=== PATIENT | male | born 1970 | race Caucasian/White ===

== ENCOUNTER 2020-09-21 10:31 | Outpatient (NON) | payer BC, SELFPAY ==
[2020-09-23 16:41] LABS: SARS-CoV-2 RNA PCR Positive
== END 2020-09-21 10:32 ==
PROVIDERS: PCP Family Medicine; Visit Provider Family Medicine
DX: U07.1 COVID-19 (principal)
CPT/HCPCS: 87635; C9803; U0003

== ENCOUNTER 2020-09-29 11:48 | Emergency (ER) | payer BC, SELFPAY ==
[2020-09-29] VITALS (20 sets, daily range): BP systolic 119–143; BP diastolic 85–99; PULSE 91–112; RESP 13–25; TEMP 36.8–37.7; O2SAT 92–98
--- NOTE | ~2020-09-29 | CT_ITS ---
EXAMINATION: CTA chest PE protocol DATE: 09/29/2020 15:12 INDICATION: Shortness of breath. TECHNIQUE: Computed tomography angiography (CTA) of the chest was performed with 100 mL Omnipaque-350 intravenous contrast timed to evaluate the pulmonary arteries. Coronal maximum intensity projection 3D-reconstructions were created by the technologist. Automated exposure control and iterative reconst ruction technique were employed. The dose-length product was 543.74 mGy-cm. COMPARISON: Chest single view 09/29/2020 FINDINGS: There are peripheral groundglass opacities in right lower lobe. There is mild dependent ate lectasis in left lower lobe. There is mild scarring at the lung apices. A calcified left lung nodule and calcified left hilar and mediastinal lymph nodes are consistent with old granulomatous disease. N o pleural effusion. The heart size is normal. No pericardial effusion. There is a pulmonary embolus i n basilar right lower lobe. There is mild right hilar lymphadenopathy. There is mild thoracic spondyl osis. IMPRESSION: 1. Pulmonary embolus in basilar right lower lobe. I called this result to Dr. Ortega. 2. Peripheral groundglass opacities in right lower lobe, likely predominantly atypical pneumonia. 3. Mild right hilar lymphadenopathy, likely reactive. Reviewed, dictated and finalized at location A. 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 Pulmonary embolus in basilar right lower lobe. I called this result to Dr. David antonio. 2. Peripheral groundglass opacities in right lower lobe, likely predominantly a typical pneumonia. 3. Mild right hilar lymphadenopathy, likely reactive.
--- NOTE | ~2020-09-29 | XR_ITS ---
XR chest 1V portable DATE: 09/29/2020 12:31 INDICATION: Shortness of breath, cough. Covid-positive. TECHNIQUE: Portable AP chest on 09/29/2020 at 1223 hours COMPARISON: None FINDINGS: Normal heart size. No hilar or mediastinal enlargement. No pulmonary infiltrate or consolid ation, pleural effusion or pulmonary vascular congestion or pneumothorax. There is mild levoscoliosis of the thoracic spine. IMPRESSION: No active cardiopulmonary disease Reviewed, dictated and finalized at location A. [employer]
--- NOTE | 2020-09-29 12:04 | ECG_ITS ---
Measurements Intervals [place] Rate: 106 P: 17 MI: 140 QRS: 138 QRSD: 115 T: 40 QT: 325 QTc: 433 Interpretive Statements SINUS TACHYCARDIA RIGHT AXIS DEVIATION INCOMPLETE RIGHT BUNDLE BRANCH BLOCK BORDERLINE ST-T WAVE ABNORMALITY- INFERIOR LEADS ABNORMAL ECG Electronically Signed On 09-29-2020 15:45:03 [employer]LEGE COACH by Michael Whitney D.O.
[2020-09-29 12:25] LABS: Basophils Percent Auto 0.2 % (0.2-1.2); Hematocrit 45.2 % (42.0-52.0); Hemoglobin 16.2 g/dL (14.0-18.0); Immature Granulocyte Absolute 0.05 K/mm3 (0.00-0.031); Immature Granulocyte Percent A 1.1 % (0-0.5); Lymphocytes Absolute Auto 0.89 K/mm3 (0.9-3.2); Lymphocytes Percent Auto 19.9 % (18.3-44.2); Mean Corpuscular HGB Conc 35.8 g/dl (32-36); Mean Corpuscular Hemoglobin 31.9 pg (26-34); Mean Platelet Volume 9.8 fl (7.4-10.4); Monocytes Absolute Auto 0.5 K/mm3 (0.1-0.6); Monocytes Percent Auto 10.1 % (2.6-8.5); Neutrophils Absolute Auto 3.1 K/mm3 (1.3-6.7); Neutrophils Percent Auto 68.7 % (45.5-73.1); Platelet Count Result 184 k/mm3 (150-375); Red Blood Count 5.08 M/mm3 (4.6-6.20); Red Cell Distribution Width 12.6 % (11.5-14.5); White Blood Count 4.5 K/mm3 (4.5-10.0)
[2020-09-29 12:52] LABS: D Dimer 1.11 ug/mL (<0.48)
[2020-09-29 12:58] LABS: Anion Gap 10 mmol/L (8-16); Blood Urea Nitrogen 15 mg/dL (9-20); Calcium 9.2 mg/dL (8.4-10.2); Carbon Dioxide 28 mmol/L (22-30); Chloride 96 mmol/L (98-107); Estimated CRCL calculation 95 ml/min; Estimated Glomerular Filt Rate > 60; Glucose 102 mg/dL (75-110); Potassium 3.8 mmol/L (3.4-5.0); Sodium 134 mmol/L (137-145)
[2020-09-29 12:59] LABS: Lactic Acid Reflex 1.3 mmol/L (0.7-2.1)
[2020-09-29 13:05] LABS: Alanine Aminotransferase 40 U/L (4-50); Albumin Level 4.4 g/dL (3.5-5.1); Alkaline Phosphatase 82 U/L (38-126); Aspartate Amino Transferase 46 U/L (17-59); Bilirubin,Total 0.7 mg/dL (0.2-1.3)
[2020-09-29 13:32] LABS: Alveolar/Arterial O2 Gradient 52.1 mmHg; Base Excess ABG 0.5 mEq/l (+/-2.0); Fractional Inspired Oxygen 21 %; HCO3 ABG 21.4 mEq/l (22.0-26.0); Oxygen Content ABG 21.6 %vol (16.0-22.0); Oxygen Saturation ABG 95.2 % (95.0-100.0); Oxyhemoglobin 93.2 % THb (90.0-100.0); PCO2 ABG 26.4 mmHg (35.0-45.0); PO2 FiO2 Ratio Arterial Blood 3.14 %; Total Hemoglobin 16.5 g/dL (12.0-18.0); pH ABG 7.527 (7.350-7.450)
[2020-09-29 13:33] LABS: Device ROOM AIR; Modified Allen's Test Pass
--- NOTE | 2020-09-29 13:55 | ED.GENADULT ---
HPI - General Adult General Chief complaint: Shortness of Breath/Dyspnea Stated complaint: COVID +, increased short of breath Time Seen by Provider: 09/29/20 12:27 Source: patient Limitations: no limitations History of Present Illness HPI narrative: 50 years old white male presents with chest pain. Patient developed Covid symptoms 9 days ago. Positive Covid test 3 days later. Patient developed chest pain 2 to 3 days prior to arrival to the emergency room. Patient also complaining of general weakness, body aches, not feeling well, poor appetite and poor p.o. fluid intake. Patient did not take any fever medication prior to arrival today. Temperature on arrival is 99.9. History of tension. Patient does not smoke, or uses drugs, drinks occasionally. Related Data Allergies Allergy/AdvReac Type Severity Reaction Status Date / Time No Known Allergies Allergy Unknown Unverified 09/29/20 11:55 Review of Systems Review of Systems: Narrative: CONSTITUTIONAL: Complaining of feeling miserable, muscle aches mainly of the chest EYES: Denies visual changes, redness, or discharge. ENT: Denies rhinorrhea, congestion, sore throat, or otalgia. CARDIOVASCULAR: Denies chest pain, palpitations, or edema. RESPIRATORY: Intermittent dry cough GASTROINTESTINAL: Denies abdominal pain, nausea, vomiting, or diarrhea. GENITOURINARY: Denies dysuria or hematuria. SKIN: Denies rash or itching. MUSCULOSKELETAL: General body aches NEUROLOGIC: General weakness PMFSH Past Medical History Medical History Obesity (BMI 30.0-34.9) Family History Family History Father Hypertension Family history of Parkinson's disease Mother Cerebrovascular accident Other Family history of arthritis Social History Social History Smoking status: Never smoker Second hand tobacco smoke exposure: Yes Alcohol intake: current Gender identity (if verbalized by the patient): Male Exam Narrative: Exam Narrative: General appearance: Well-developed, well-nourished, does not look in pain or distress Skin: Normal color Head: Normocephalic Eyes: Clear conjunctiva ENT: Oropharynx normal Chest and respiratory: Airway patent, no respiratory distress, no accessory muscle use Heart: Regular rate/rhythm Abdomen: Soft, nontender, no organomegaly, quiet bowel sounds Neurologic: Alert and oriented ?3, Course Course Emergency Course: Stable Consultations Consultation #1: DR HODGES Date: 09/29/20 Time: 16:18 Consultation #2: DR SMITH Date: 09/29/20 Time: 16:18 Vital Signs Vital signs: Vital Signs Temperature 37.7 C H 09/29/20 11:53 Pulse Rate 112 H 09/29/20 11:53 Respiratory Rate 24 H 09/29/20 11:53 Blood Pressure 119/93 H 09/29/20 11:53 Pulse Oximetry 97 09/29/20 11:53 Temperature 37.7 C H 09/29/20 11:53 Pulse Rate 98 09/29/20 13:02 Respiratory Rate 17 09/29/20 13:34 Blood Pressure 143/99 H 09/29/20 13:02 Pulse Oximetry 97 09/29/20 13:34 Medical Decision Making MDM Narrative Medical decision making narrative: Covid infection disease is my concern Labs, chest x-ray, blood gas on room air, IV normal saline, IV Toradol Ordered, oral Tylenol ordered. Further plan to follow Differential Diagnosis Differential Diagnosis: Pneumonia, pulmonary embolism, electrolyte imbalance. Vital Signs Vital Signs: Vital Signs Temperature 37.7 C H 09/29/20 11:53 Pulse Rate 112 H 09/29/20 11:53 Respiratory Rate 24 H 09/29/20 11:53 Blood Pressure 119/93 H 09/29/20 11:53 Pulse Oximetry 97 09/29/20
[2020-09-29] MEDS: ACETAMINOPHEN 325 MG TABLET 650 MG PO (14:02)
[2020-09-29] MEDS: KETOROLAC 30 MG/ML VIAL (*BKC) IV PUSH (14:02)
[2020-09-29] MEDS: SODIUM CHLORIDE 0.9% IV 1,000 ML 999 ML IV CONT (14:03)
[2020-09-29] MEDS: APIXABAN 5 MG TABLET 10 MG PO (16:20)
== END 2020-09-29 16:40 | disposition home or self-care (01) ==
PROVIDERS: Emergency Medicine; Emergency Provider Emergency Medicine; PCP Family Medicine
DX: U07.1 COVID-19 (principal); E87.3 Alkalosis; I26.99 Other pulmonary embolism without acute cor pulmonale; E66.9 Obesity, unspecified; Z68.31 Body mass index [BMI] 31.0-31.9, adult; R00.0 Tachycardia, unspecified; I45.10 Unspecified right bundle-branch block; R94.31 Abnormal electrocardiogram [ECG] [EKG]
CPT/HCPCS: 36415; 36600; 71045; 71275; 80048; 80076; 82805; 83605; 85025; 85380; 93005; 96361; 96374; 99284; A9270; J1885; J7030; Q9967

== ENCOUNTER 2020-10-18 10:38 | Emergency (ER) | payer BC, SELFPAY ==
--- NOTE | ~2020-10-18 | CT_ITS ---
EXAMINATION: CT abdomen pelvis w con DATE: 10/18/2020 11:40 INDICATION: Abdominal pain. TECHNIQUE: Computed tomography (CT) of the abdomen and pelvis was performed with 100 mL Omnipaque 350 intravenous contrast. Automated exposure control and iterative reconstruction technique were employe d. The dose-length product was 881.77 mGy-cm. COMPARISON: Chest CT 09/29/2020 FINDINGS: The visualized portions of the lung bases demonstrate groundglass and airspace opacities in right lower lobe. There is mild atelectasis in left lower lobe. No pleural effusion. The heart size is normal. No pericardial effusion. The liver, gallbladder, spleen, pancreas, adrenal glands, and rig ht kidney are normal. There is an infarct involving left kidney mid zone. Left renal artery and renal vein are normal. There is a small left inguinal hernia containing fat. There is diverticulosis of th e colon without evidence of diverticulitis. There are no dilated loops of bowel. The appendix is norm al. There is an umbilical hernia containing fat. There are no pathologically enlarged lymph nodes. Th ere is no free intraperitoneal fluid. There is mild lumbar spondylosis. IMPRESSION: 1. Infarct in left kidney mid zone. 2. Airspace and groundglass opacities in right lower lobe with improvement, consistent with pneumonia . 3. Umbilical hernia and left inguinal hernia containing fat. Reviewed, dictated and finalized at location A. [employer] IMPRESSION: 1. Infarct in left kidney mid zone. 2. Airspace and groundglass opacities in right lower lobe with improvement, con sistent with pneumonia. 3. Umbilical hernia and left inguinal hernia containing fat.
--- NOTE | ~2020-10-18 | XR_ITS ---
EXAMINATION: XR chest 1V portable DATE: 10/18/2020 12:43 INDICATION: Cough. COVID-19 pneumonia. TECHNIQUE: A single frontal view of the chest was obtained. COMPARISON: Chest single view 09/29/2020, CT abdomen and pelvis 10/18/2020 FINDINGS: There are mild airspace opacities in right lower lung zone. A calcified left lung nodule is consistent with old granulomatous disease. No pleural effusion or pneumothorax. The heart size is no rmal. IMPRESSION: 1. Mild airspace opacities in right lower lung zone, consistent with pneumonia. Reviewed, dictated and finalized at location A. ER COOK
[2020-10-18 10:46] VITALS: BP 148/91; PULSE 97; RESP 18; TEMP 35.7; O2SAT 98
[2020-10-18 11:10] LABS: Basophils Absolute Auto 0.1 K/mm3 (0.0-0.1); Basophils Percent Auto 0.5 % (0.2-1.2); Eosinophils Absolute Auto 0.1 K/mm3 (0-0.3); Eosinophils Percent Auto 0.5 % (0-4.4); Hematocrit 42.8 % (42.0-52.0); Hemoglobin 15.3 g/dL (14.0-18.0); Immature Granulocyte Absolute 0.04 K/mm3 (0.00-0.031); Immature Granulocyte Percent A 0.3 % (0-0.5); Mean Corpuscular HGB Conc 35.7 g/dl (32-36); Mean Corpuscular Hemoglobin 32.6 pg (26-34); Mean Corpuscular Volume 91.3 fl (80-100); Mean Platelet Volume 9.1 fl (7.4-10.4); Monocytes Absolute Auto 1.1 K/mm3 (0.1-0.6); Monocytes Percent Auto 9.3 % (2.6-8.5); Neutrophils Absolute Auto 8.1 K/mm3 (1.3-6.7); Neutrophils Percent Auto 66.4 % (45.5-73.1); Platelet Count Result 298 k/mm3 (150-375); Red Blood Count 4.69 M/mm3 (4.6-6.20); White Blood Count 12.2 K/mm3 (4.5-10.0)
[2020-10-18 11:16] LABS: Add Urine Microscopic? NO; Appearance Urine Clear (Clear); Bilirubin Urine Negative (Negative); Blood Urine Negative (Negative); Color Urine Colorless (Yellow); Glucose Urine UA Negative (Negative); Ketones Urine Negative (Negative); Leukocyte Esterase Ur Negative LEU/UL (Negative); Nitrate Urine Negative (Negative); Protein Urine Negative (Negative); RBC Urine 0-2 /hpf (0-2); Specific Grav Ur 1.006 (1.001-1.035); Urobilinogen Urine Negative mg/dL (<2.0); WBC Urine 0-3 /hpf
[2020-10-18 11:19] LABS: INR 1.1; Partial Thromboplastin Time 33.3 SECONDS (22.3-36.8); Prothrombin Time 14.5 Seconds (11.1-14.7)
[2020-10-18 11:21] LABS: Lactic Acid Reflex 1.3 mmol/L (0.7-2.1)
[2020-10-18 11:22] LABS: Alanine Aminotransferase 34 U/L (4-50); Albumin Level 4.6 g/dL (3.5-5.1); Alkaline Phosphatase 85 U/L (38-126); Anion Gap 8 mmol/L (8-16); Aspartate Amino Transferase 30 U/L (17-59); Blood Urea Nitrogen 12 mg/dL (9-20); Calcium 9.6 mg/dL (8.4-10.2); Carbon Dioxide 28 mmol/L (22-30); Chloride 99 mmol/L (98-107); Estimated CRCL calculation 94 ml/min; Estimated Glomerular Filt Rate > 60; Glucose 103 mg/dL (75-110); Lipase 194 U/L (23-300); Potassium 3.7 mmol/L (3.4-5.0); Sodium 135 mmol/L (137-145)
[2020-10-18] MEDS: SODIUM CHLORIDE 0.9% IV 1,000 ML 999 ML IV CONT (11:48)
[2020-10-18] MEDS: FAMOTIDINE 20 MG/2 ML VIAL IV PUSH (11:49)
--- NOTE | 2020-10-18 13:39 | ED.ABDPAIN ---
HPI - Abdominal Pain General Chief Complaint: Abdominal Pain <Roger Ojeda PA-C - Last Filed: 10/18/20 13:48> Stated Complaint: left flank pain <Roger Ojeda PA-C - Last Filed: 10/18/20 13:48> Time Seen by Provider: 10/18/20 10:44 <Roger Ojeda PA-C - Last Filed: 10/18/20 13:48> Source: patient and old records reviewed <Roger Ojeda PA-C - Last Filed: 10/18/20 13:48> Mode of arrival: ambulatory <Roger Ojeda PA-C - Last Filed: 10/18/20 13:48> Limitations: no limitations <Roger Ojeda PA-C - Last Filed: 10/18/20 13:48> History of Present Illness HPI narrative: Patient is a 50-year-old male who presents to emergency department for evaluation of left flank pain abdominal discomfort that sometimes radiates across the lower abdomen that is been present for the last day patient notes when he wipes he has a small amount of blood but has history of hemorrhoids and possible fissure. Patient has had difficulty with bowel movements with constipation is taken fiber supplements and intermittent MiraLAX. Patient is also currently getting over COVID-19 his symptoms have largely resolved aside from continuing to have a cough but is denying chest pain or dyspnea. Patient on arrival does not appear distressed. Patient has been without emesis or melena. On arrival patient in the room in no distress is noted <Roger Ojeda PA-C - Last Filed: 10/18/20 13:48> Related Data Allergies/Adverse Reactions: Allergies Allergy/AdvReac Type Severity Reaction Status Date / Time No Known Allergies Allergy Unknown Unverified 09/29/20 11:55 <Roger Ojeda PA-C - Last Filed: 10/18/20 13:48> Review of Systems Review of Systems: All systems reviewed & are unremarkable except as noted in HPI and below <Roger Ojeda PA-C - Last Filed: 10/18/20 13:48> PMFSH Past Medical History Medical History: Medical History Obesity (BMI 30.0-34.9) Pulmonary embolism <Roger Ojeda PA-C - Last Filed: 10/18/20 13:48> Family History Family History: Family History Father Hypertension Family history of Parkinson's disease Mother Cerebrovascular accident Other Family history of arthritis <Roger Ojeda PA-C - Last Filed: 10/18/20 13:48> Social History Social History: Social History Smoking status: Never smoker Second hand tobacco smoke exposure: Yes Alcohol intake: current Gender identity (if verbalized by the patient): Male <Roger Ojeda PA-C - Last Filed: 10/18/20 13:48> Exam Narrative: Exam Narrative: GENERAL: Well-appearing, well-nourished, and in no acute distress. HEAD: Normocephalic, atraumatic. EYES: PERRLA and EOMI. ENT: Nares clear, no rhinorrhea or epistaxis. Mucous membranes moist. CHEST: Clear to auscultation. No respiratory distress. No wheezes rales or rhonchi HEART: Regular rate and rhythm. No murmur heard. Normal peripheral pulses. ABDOMEN: Soft, left lower abdominal tenderness remainder of exam unremarkable no rebound or guarding, nondistended EXTREMITIES: Normal range of motion. No edema. SKIN: Warm, dry, no rash. NEURO: No focal deficits. Alert and oriented x3. Cranial nerves II through XII grossly intact PSYCH: Normal mood and affect. <Roger Ojeda PA-C - Last Filed: 10/18/20 13:48> Course Course Emergency Course: Patient in the room was evaluated to include chest x-ray scan of the abdomen patient with normal vital signs ABCs intact no high risk changes in the blood work or imaging. Patient with small amount of leukocytosis. Patient will follow with primary care. Patient will be set up with anorectal specialist as well as primary care follow-up patient agrees with the plan feels comfortable with the plan and has also been
[2020-10-18 14:00] VITALS: BP 132/88; PULSE 84; RESP 16; O2SAT 98
== END 2020-10-18 14:05 | disposition home or self-care (01) ==
PROVIDERS: Emergency Medicine Emergency Medical Services; Emergency Provider Emergency Medicine; PCP Family Medicine
DX: R10.32 Left lower quadrant pain (principal); U07.1 COVID-19; Z86.711 Personal history of pulmonary embolism; E66.9 Obesity, unspecified; Z68.30 Body mass index [BMI] 30.0-30.9, adult; K42.9 Umbilical hernia without obstruction or gangrene; R91.8 Other nonspecific abnormal finding of lung field
CPT/HCPCS: 36415; 71045; 74177; 80053; 81003; 83605; 83690; 85025; 85610; 85730; 96374; 96375; 99284; J0131; J7030; Q9967

== ENCOUNTER 2021-04-21 11:46 | Outpatient (CLI) | payer BC, SELFPAY ==
--- NOTE | ~2021-04-21 | XR_ITS ---
XR shoulder LT min 2V 04/21/2021 12:07 Indication: Left shoulder pain Procedure: 4 views left shoulder Comparison: No prior studies for comparison. Findings: No fracture, subluxation or dislocation. There are mild degenerative changes of the glenohu meral joint. No significant soft tissue abnormality. The visualized lung parenchyma is unremarkable. Impression: 1: Mild osteoarthritis of the left shoulder. Reviewed, dictated and finalized at location B. Impression: 1: Mild osteoarthritis of the left shoulder.
== END 2021-04-21 11:47 | disposition home or self-care (01) ==
LOC: ANHBWCIMG 11:54
PROVIDERS: PCP Family Medicine; Visit Provider Family Medicine
DX: M19.012 Primary osteoarthritis, left shoulder (principal)
CPT/HCPCS: 73030

== ENCOUNTER 2021-06-09 06:44 | Outpatient (CLI) | payer BC, SELFPAY ==
--- NOTE | ~2021-06-09 | MR_ITS ---
EXAMINATION: MR shoulder LT wo con DATE: 06/09/2021 07:59 INDICATION: Left shoulder pain. TECHNIQUE: Magnetic resonance imaging (MRI) of the left shoulder was performed without intravenous co ntrast. Sequences included axial PD-weighted FS FSE, coronal oblique PD-weighted FS FSE and T2-weight ed FS FSE, and sagittal oblique T2-weighted FS FSE and T1-weighted FSE. COMPARISON: Left shoulder radiograph 04/21/2021 FINDINGS: Coracoacromial arch: The acromion undersurface is curved in morphology with anterior hook (type III). Subacromial spurring is noted. There is mild acromioclavicular joint osteoarthritis. There is moderate subacromial/subdel toid bursitis. Rotator cuff: There is a bursal sided partial-thickness tear of supraspinatus tendon measuring 13 mm anterior to po sterior by 8 mm proximal to distal by 70% tendon thickness. There is moderate infraspinatus tendinopa thy. Teres minor tendon is normal. There is mild subscapularis tendinopathy. There is no asymmetric f atty atrophy of the rotator cuff muscle bellies. Biceps tendon and glenoid labrum: There is a complete tear of proximal biceps tendon. There is a tear of superior and posterior labrum from 9:00 to 12:00 (SLAP tear). Fluid: There is a small glenohumeral joint effusion. Bones/cartilage: There is posterior subluxation of humeral head with respect to glenoid. Glenoid cartilage is normal. Humeral head cartilage is normal. IMPRESSION: 1. Bursal-sided, partial-thickness tear of supraspinatus tendon. 2. SLAP tear. 3. Mild acromioclavicular joint osteoarthritis. 4. Complete tear of proximal biceps tendon. 5. Moderate subacromial/subdeltoid bursitis. 6. Small glenohumeral joint effusion. Reviewed, dictated and finalized at location A.
== END 2021-06-09 06:45 | disposition home or self-care (01) ==
PROVIDERS: PCP Family Medicine; Visit Provider Orthopaedic Surgery
DX: M25.412 Effusion, left shoulder (principal); M19.012 Primary osteoarthritis, left shoulder; M75.52 Bursitis of left shoulder; S43.432A Superior glenoid labrum lesion of left shoulder, initial encounter; X58.XXXA Exposure to other specified factors, initial encounter
CPT/HCPCS: 73221

== ENCOUNTER → 2021-07-18 01:44 | Outpatient (CLI) | payer BC, SELFPAY ==
[2021-07-18 19:39] LABS: SARS-CoV-2 RNA PCR Negative
== END ==
PROVIDERS: PCP Family Medicine; Visit Provider Family Medicine
DX: R09.81 Nasal congestion (principal); Z20.822 Contact with and (suspected) exposure to COVID-19
CPT/HCPCS: C9803; U0003; U0005

== ENCOUNTER 2021-09-28 17:42 | Emergency (ER) | payer BC, SELFPAY ==
--- NOTE | ~2021-09-28 | US_ITS ---
US scrotum doppler INDICATION: Left testicular pain TECHNIQUE: Testicular sonogram utilizing grayscale and color Doppler FINDINGS: The testes are normal in size and appearance. There is a 4 mm right testicular cyst.. The r ight testes measures 4.3 x 2.7 x 3.3 cm centimeters, and the left testis measures 4.4 x 2.4 x 3.1 cm cm. There is normal vascular flow to both testes. The right and left epididymides appear normal. There are bilateral varicoceles. IMPRESSION: 1. Bilateral varicoceles. Reviewed, dictated and finalized at location A. NNER IMPRESSION: 1. Bilateral varicoceles.
--- NOTE | ~2021-09-28 | CT_ITS ---
EXAMINATION: CT abdomen pelvis wo con DATE: 09/28/2021 19:53 INDICATION: Left testicular and flank pain TECHNIQUE: Computed tomography (CT) of the abdomen and pelvis was performed without intravenous contr ast. The dose-length product was 1160.89 mGy-cm. Automated exposure control and iterative reconstruct ion technique were employed. COMPARISON: CT dated 10/18/2020 FINDINGS: Lung bases are unremarkable. Heart size normal. No significant pleural or pericardial effus ion. No significant vascular abnormality. No lymphadenopathy. No free air or free fluid. Liver, spleen, pancreas, adrenal glands and right kidney are unremarkable. Nonobstructing punctate le ft renal stone measuring 2 mm. There are gallstones. Nonobstructive bowel gas pattern. Normal appendi x. Colonic diverticulosis without evidence for diverticulitis. No acute osseous abnormality. IMPRESSION: 1. Nonobstructing 2 mm left renal stone. 2: Cholelithiasis. Reviewed, dictated and finalized at location A. 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
[2021-09-28 17:48] VITALS: BP 141/91; PULSE 83; RESP 20; TEMP 36.9; O2SAT 99
--- NOTE | 2021-09-28 18:41 | PC.NURSE ---
PT RETURNED FROM [facility] TO ROOM 13 AT THIS TIME.
[2021-09-28] MEDS: KETOROLAC (*BKC) 60 MG/2 ML VIAL IM (19:14)
--- NOTE | 2021-09-28 19:41 | ED.MALEGU ---
HPI - Male Genitourinary General Chief complaint: Urogenital-Male Stated complaint: abd pain Time Seen by Provider: 09/28/21 18:31 History of Present Illness HPI Narrative: Patient is a 51-year-old male who presents ER with left-sided testicular pain. It began around 3 PM. 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 Symptoms gradually increased. Reports urinary frequency over the last day. Has also had some mild left flank pain. No history of stones. Denies urethral discharge or possible STI. Patient is without dysuria. No alleviating factors. Pain is worse with palpation. Related Data Allergies Allergy/AdvReac Type Severity Reaction Status Date / Time No Known Allergies Allergy Unknown Verified 09/28/21 19:14 Review of Systems Review of Systems: All systems reviewed & are unremarkable except as noted in HPI and below Constitutional: Constitutional: Denies chills and Denies fever(s) Gastrointestinal: Gastrointestinal: Denies abdominal pain, Denies diarrhea, Denies nausea and Denies vomiting Genitourinary: Genitourinary: Denies hematuria, Denies dysuria, Denies penile discharge, Reports testicular pain, Reports urinary frequency and Denies urinary incontinence Musculoskeletal: Musculoskeletal: Reports back pain and Denies muscle cramps PMFSH Past Medical History Medical History Acquired cavovarus foot deformity Capsulitis of left shoulder Impingement syndrome of left shoulder Labral tear of long head of left biceps tendon Obesity (BMI 30.0-34.9) Pneumonia due to COVID-19 virus Pulmonary embolism Renal infarct Tendonitis of left rotator cuff Family History Family History Father Hypertension Family history of Parkinson's disease Mother Cerebrovascular accident Other Family history of arthritis Social History Social History Second hand tobacco smoke exposure: Yes Alcohol intake: current Gender identity (if verbalized by the patient): Male Exam Narrative: GENERAL: Well-appearing, well-nourished, and in no acute distress. HEAD: Normocephalic, atraumatic. CHEST: Clear to auscultation. Respiratory distress. HEART: Regular rate and rhythm. Normal peripheral pulses. ABDOMEN: Soft, nontender, nondistended. : Normal appearing external genitalia with circumcised penis without urethral discharge. Tender to palpation over the left testicle both of the testicle itself and epididymis. Patient has discomfort with palpation of the inguinal canal but no deformity noted on left side. EXTREMITIES: Normal range of motion. No edema. NEURO: Alert and oriented x3. Course Course Emergency Course: Pain improving with Toradol. Informed results. Suspect patient may have passed a kidney stone. Encouraged scrotal support and scheduled anti-inflammatories for home. Verbalized understanding. Discharge home. Vital Signs Vital signs: Vital Signs Temperature 98.5 F 09/28/21 17:48 Pulse Rate 83 09/28/21 17:48 Respiratory Rate 20 09/28/21 17:48 Blood Pressure 141/91 H 09/28/21 17:48 Pulse Oximetry 99 09/28/21 17:48 Temperature 98.5 F 09/28/21 17:48 Pulse Rate 74 09/28/21 20:28 Respiratory Rate 16 09/28/21 20:28 Blood Pressure 140/70 09/28/21 20:28 Pulse Oximetry 99 09/28/21 20:28 MDM - Male Genitourinary Lab Data Labs: Lab Results 09/28/21 Range/Units 20:03 Urine Color Yellow (Yellow) Urine Appearance Cloudy H (Clear) Urine pH 6.0 (5.0-9.0) Ur Specific [place] 1.015 (1.001-1.035) Urine Protein Negative (Negative) mg/dL Urine Glucose (UA) Negative (Negative) mg/dL Urine Ketones Negative (Negative) mg/dL Ur Blood (Man) 1+ H (Negative) Urine Nitrate Negative (Negative) Urine Bilirubin Negative (Negative) Urine Urobilinogen Negative (<2.0) mg/dL Leukocyte
[2021-09-28 20:15] LABS: Add Urine Microscopic? YES; Appearance Urine Cloudy (Clear); Bilirubin Urine Negative (Negative); Blood Urine 1+ (Negative); Budding Yeast Urine Present /hpf; Color Urine Yellow (Yellow); Glucose Urine UA Negative (Negative); Ketones Urine Negative (Negative); Leukocyte Esterase Ur Negative LEU/UL (Negative); Mucus Urine Rare /lpf; Nitrate Urine Negative (Negative); Protein Urine Negative (Negative); Specific Grav Ur 1.015 (1.001-1.035); Squamous Epithelial Cell Urine Rare /hpf (Few); Urobilinogen Urine Negative mg/dL (<2.0); WBC Urine 0-3 /hpf
[2021-09-28 20:28] VITALS: BP 140/70; PULSE 74; RESP 16; O2SAT 99
== END 2021-09-28 21:13 | disposition home or self-care (01) ==
PROVIDERS: Emergency Provider Emergency Medicine; PCP Family Medicine
DX: N50.812 Left testicular pain (principal); N20.0 Calculus of kidney; K80.20 Calculus of gallbladder without cholecystitis without obstruction; E66.9 Obesity, unspecified; Z68.31 Body mass index [BMI] 31.0-31.9, adult; Z86.16 Personal history of COVID-19; Z87.01 Personal history of pneumonia (recurrent); Z77.22 Contact with and (suspected) exposure to environmental tobacco smoke (acute) (chronic); I86.1 Scrotal varices
CPT/HCPCS: 74176; 76870; 81001; 93976; 96372; 99284; J1885

== ENCOUNTER 2022-03-09 14:49 | Emergency (ER) | payer BC, SELFPAY ==
--- NOTE | ~2022-03-09 | XR_ITS ---
EXAMINATION: XR finger 1st LT min 2V INDICATION: Left first finger pain TECHNIQUE: Three views of the left first finger are obtained. COMPARISON: None available FINDINGS: There is no fracture, dislocation, or subluxation. The bones, soft tissues, and joint space s are normal. IMPRESSION: 1. No acute osseous abnormality. Reviewed, dictated and finalized at location A.
[2022-03-09 14:54] VITALS: BP 138/77; PULSE 92; RESP 14; TEMP 36.7; O2SAT 98
--- NOTE | 2022-03-09 14:56 | ED.UPPEXIN ---
HPI - Extremity Injury (Upper) General Chief Complaint: Extremity Injury, Upper Stated Complaint: Left thumb injury Time Seen by Provider: 03/09/22 14:56 Source: patient and RN notes reviewed History of Present Illness HPI narrative: Patient is a 51-year-old male who presents the urgent care with complaints of left thumb pain and swelling. 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 Patient has not done anything [id number] for his symptoms. States that the pain has increased with limited mobility. No other acute complaints. No acute distress noted. Patient aware of the plan of care. Some parts of this dictation were generated by voice recognition software and may contain typographical and/or grammatical inaccuracies. Related Data Allergies Allergy/AdvReac Type Severity Reaction Status Date / Time No Known Allergies Allergy Unknown Verified 03/09/22 14:55 Review of Systems Review of Systems: CONSTITUTIONAL: Denies fever, chills, or sweats. EYES: Denies visual changes, redness, or discharge. ENT: Denies rhinorrhea, congestion, sore throat, or otalgia. CARDIOVASCULAR: Denies chest pain, palpitations, or edema. RESPIRATORY: Denies cough or dyspnea. GASTROINTESTINAL: Denies abdominal pain, nausea, vomiting, or diarrhea. GENITOURINARY: Denies dysuria or hematuria. SKIN: Denies rash or itching. MUSCULOSKELETAL: Reports of left thumb pain and swelling NEUROLOGIC: Denies headache, numbness, or weakness. All other systems reviewed are negative, except as documented in HPI. [facility] Past Medical History Medical History Acquired cavovarus foot deformity Capsulitis of left shoulder Impingement syndrome of left shoulder Labral tear of long head of left biceps tendon Obesity (BMI 30.0-34.9) Pneumonia due to COVID-19 virus Pulmonary embolism Renal infarct Tendonitis of left rotator cuff Family History Family History Father Hypertension Family history of Parkinson's disease Mother Cerebrovascular accident Other Family history of arthritis Social History Social History (Updated 02/04/22 @ 14:50 by MARINA Iraheta) Second hand tobacco smoke exposure: Yes Alcohol intake: current Gender identity (if verbalized by the patient): Male Comments At the time of my signature, I reviewed and agree with the nursing past medical, surgical, social, and family history. There is no relevant family history pertinent to the patient complaint. Exam Narrative: GENERAL: This is a well-nourished, well-developed patient, in no apparent distress. HEAD: normocephalic, atraumatic. EYES: PERRL. Sclera clear/white. Vision is grossly intact. EARS: External ears normal NOSE: External nose normal with no obvious nasal discharge, nares without redness, no rhinorrhea. THROAT: Mucous membranes moist NECK: Neck supple CARDIOVASCULAR: Regular rate and rhythm without murmurs, gallops, or rubs. RESPIRATORY: Clear to auscultation. Breath sounds equal bilaterally. No wheezes, rales, or rhonchi. SKIN: warm, intact with no suspicious lesions or rash, good texture and turgor. NEURO: awake, alert, and oriented to person, place and time. There were no obvious focal neurologic abnormalities. EXTREMITIES: Mild edema noted to the MCP of the left thumb with moderate tenderness to the MCP and throughout the thenar eminence. No obvious deformity or dislocation noted. Positive strong left radial pulse with capillary refill less than 2 seconds. Range of motion limited due to pain Course Course Level of Care: Express Care Visit Vital Signs Vital signs: Vital Signs Temperature 98.1 F 03/09/22 14:54 Pulse Rate 92 03/09/22 14:54 Respiratory Rate 14 03/09/22 14:54 Blood Pressure 138/77 03/09/22 14:54 Pulse Oximetry 98 03/09/22 14:54 Temp
== END 2022-03-09 15:39 | disposition home or self-care (01) ==
PROVIDERS: Emergency Provider Nurse Practitioner Family; PCP Family Medicine
DX: S63.602A Unspecified sprain of left thumb, initial encounter (principal); W50.0XXA Accidental hit or strike by another person, initial encounter; Y93.67 Activity, basketball
CPT/HCPCS: 73140; 99213; G0463

== ENCOUNTER 2022-03-27 08:44 | Emergency (ER) | payer BC, SELFPAY ==
[2022-03-27 08:47] VITALS: BP 136/86; PULSE 99; RESP 14; TEMP 36.6; O2SAT 99
--- NOTE | 2022-03-27 09:06 | ED.SKABFB ---
HPI - Skin/Abscess/Foreign Bdy General Chief complaint: Skin/Abscess/Foreign Body Stated complaint: rash all over Time Seen by Provider: 03/27/22 09:07 Source: patient, RN notes reviewed and old records reviewed Mode of arrival: ambulatory Limitations: no limitations History of Present Illness HPI narrative: 51 year old male presents to [facility] care with complaints of rash generalized on upper chest, legs, forearms which is itchy for the past 3 days. Patient reports that he has not been working n the yard. He reports no new foods, medications, soaps, laundry detergents or any new lotion or body products. He denies anyone else in household having rash or any recent travel. Rash is scattered small red raised lesion some with scabbing from itching.He denies any difficulty with his breathing or any difficulty with swallowing. MD complaint: rash Related Data Allergies Allergy/AdvReac Type Severity Reaction Status Date / Time No Known Allergies Allergy Unknown Verified 03/09/22 14:55 Review of Systems Review of Systems: CONSTITUTIONAL: Denies fever, chills, or sweats. EYES: Denies visual changes, redness, or discharge. ENT: Denies rhinorrhea, congestion, sore throat, or otalgia. CARDIOVASCULAR: Denies chest pain, palpitations, or edema. RESPIRATORY: Denies cough or dyspnea. GASTROINTESTINAL: Denies abdominal pain, nausea, vomiting, or diarrhea. GENITOURINARY: Denies dysuria or hematuria. SKIN: Positive rash or itching. MUSCULOSKELETAL: Denies back pain, joint pain, or myalgia. NEUROLOGIC: Denies headache, numbness, or weakness. PSYCHIATRIC: Denies anxiety or depression. FOR[facility]LY [facility] Past Medical History Medical History Acquired cavovarus foot deformity Capsulitis of left shoulder Impingement syndrome of left shoulder Labral tear of long head of left biceps tendon Obesity (BMI 30.0-34.9) Pneumonia due to COVID-19 virus Pulmonary embolism Renal infarct Tendonitis of left rotator cuff Family History Family History Father Hypertension Family history of Parkinson's disease Mother Cerebrovascular accident Other Family history of arthritis Social History Social History (Updated 03/28/22 @ 08:56 by Farida Valente NP) Smoking status: Never smoker Second hand tobacco smoke exposure: Yes Alcohol intake: current Substance use type: does not use Living arrangements: with family Gender identity (if verbalized by the patient): Male Comments At time of signature, agree with nursing past medical, surgical, social and family history. There is no relevant family history pertinent to the presenting complaint Exam Narrative: GENERAL: Well-appearing, well-nourished, and in no acute distress. HEAD: Normocephalic, atraumatic. EYES: PERRLA and EOMI. ENT: Nares clear, no rhinorrhea or epistaxis. Mucous membranes moist.TM's normal throat pink with no lesions or exudates or tonsil enlargement NECK: Supple.no lymphadenopathy CHEST: Clear to auscultation. No respiratory distress.SAO2 99% on room air HEART: Regular rate and rhythm. No murmur heard. Normal peripheral pulses. ABDOMEN: Soft, nontender, nondistended, normal active bowel sounds. EXTREMITIES: Normal range of motion. No edema. SKIN: Warm, dry, small red raised scattered lesions to both sides of body which are itchy, no vesicles noted NEURO: No focal deficits. Alert and oriented x3. Course Course Level of Care: Express Care Visit Vital Signs Vital signs: Vital Signs Temperature 36.6 C 03/27/22 08:47 Pulse Rate 99 03/27/22 08:47 Respiratory Rate 14 03/27/22 08:47 Blood Pressure 136/86 03/27/22 08:47 Pulse Oximetry 99 03/27/22 08:47 Oxygen Delivery Room Air 03/27/22 08:47 Temperature 36.6 C 03/27/22 08:47 Pulse Rate 99 03/27/22 08:47 Respiratory Rate 14 03/27/22 08:47 Blood Pressure 136/86 03/27/22 08:47 Puls
== END 2022-03-27 09:37 | disposition home or self-care (01) ==
PROVIDERS: Emergency Provider Registered Nurse; PCP Family Medicine
DX: L25.9 Unspecified contact dermatitis, unspecified cause (principal); I10 Essential (primary) hypertension
CPT/HCPCS: 99213; G0463

== ENCOUNTER 2022-08-24 13:35 | Outpatient (CLI) | payer BC, SELFPAY ==
--- NOTE | ~2022-08-24 | XR_ITS ---
EXAMINATION: XR foot RT min 3V, XR foot LT min 3V DATE: 08/24/2022 13:52 (accession [id number]), 08/24/2022 13:53 (accession [id number]) INDICATION: Chronic bilateral foot pain TECHNIQUE: 1. Weight bearing dorsal plantar, two oblique and lateral views of the left foot were obtained. 2. Weight bearing dorsal plantar, two oblique and lateral views of the right foot were obtained. COMPARISON: None. FINDINGS: Mild left and minimal right pes planus. No fractures. Small heterotopic ossicle near the tip of the l eft medial malleolus likely sequela of chronic ankle sprain. Polyarticular osteoarthritis, mild at th e left ankle and minimal to mild at multiple bilateral tarsometatarsal and interphalangeal joints. Bi lateral small Achilles calcaneal spurs. Soft tissues are unremarkable with no ankle joint effusions. IMPRESSION: 1. Mild left and minimal right pes planus. 2. Minimal to mild polyarticular osteoarthritis at the left ankle and multiple joints in the bilatera l mid and forefeet. Reviewed, dictated and finalized at location A. IMPRESSION: 1. Mild left and minimal right pes planus. 2. Minimal to mild polyarticular osteoarthritis at the left ankle and multiple joints in the bilateral mid and forefeet.
== END 2022-08-24 13:36 | disposition home or self-care (01) ==
LOC: ANHBWCIMG 13:36
PROVIDERS: PCP Family Medicine; Visit Provider Orthopaedic Surgery
DX: M19.071 Primary osteoarthritis, right ankle and foot (principal); M19.072 Primary osteoarthritis, left ankle and foot
CPT/HCPCS: 73630

== ENCOUNTER 2023-09-27 10:34 | Emergency (ER) | payer BC, SELFPAY ==
[2023-09-27] VITALS (16 sets, daily range): BP systolic 114–130; BP diastolic 74–90; PULSE 67–80; RESP 13–21; TEMP 36.6; O2SAT 97–100
--- NOTE | ~2023-09-27 | CT_ITS ---
EXAMINATION: CTA chest PE protocol DATE: 09/27/2023 12:01 GRAVEDIGGER INDICATION: Chest pain and shortness of breath TECHNIQUE: Computed tomographic angiography (CTA) of the chest was performed with 100 mL Omnipaque-35 0 intravenous contrast. The dose-length product was 862.72 mGy-cm. Maximum intensity projection 3D-re constructions of the aorta and other arteries were constructed by the technologist on a separate work station. COMPARISON: CT dated 09/29/2020. FINDINGS: There is dependent atelectasis. No significant pleural or pericardial effusion. Heart size normal. No significant pleural or pericardial effusion. Study is technically adequate without evidenc e for pulmonary embolism. There are gallstones. No evidence for aortic aneurysm or dissection. No end obronchial lesions. No pneumothorax. No acute osseous abnormality. No focal lytic or blastic lesions. IMPRESSION: 1. No acute cardiopulmonary disease. No evidence for pulmonary embolism. Reviewed, dictated and finalized at location B. EDIGGER
--- NOTE | ~2023-09-27 | XR_ITS ---
Clinical Indication: Chest pain PA and lateral views of the chest: Comparison: 10/18/2020 Findings: The lungs are clear, without evidence of focal consolidation or pleural effusion. Cardiome diastinal silhouette is within normal limits. Bones and soft tissues are unremarkable. Impression: Normal chest. Reviewed, dictated and finalized at location . ISSIONED [employer]CE OFFICER Impression: Normal chest.
--- NOTE | 2023-09-27 10:35 | ECG_ITS ---
Measurements Intervals [place] Rate: 69 P: 28 PA: 164 QRS: 119 QRSD: 105 T: 32 QT: 393 QTc: 422 Interpretive Statements SINUS RHYTHM INCOMPLETE RIGHT BUNDLE BRANCH BLOCK BORDERLINE ECG COMPARED TO ECG 09/29/2020 12:02:34 SINUS RHYTHM NOW PRESENT Electronically Signed On 09-27-2023 11:21:36 SQUEEGEE TENDER by Michael Whitney D.O.
[2023-09-27 11:20] LABS: Basophils Absolute Auto 0.1 K/mm3 (0.0-0.1); Basophils Percent Auto 0.9 % (0.2-1.2); Eosinophils Absolute Auto 0.1 K/mm3 (0-0.3); Eosinophils Percent Auto 0.9 % (0-4.4); Hematocrit 45.9 % (42.0-52.0); Hemoglobin 15.6 g/dL (14.0-18.0); Immature Granulocyte Absolute 0.06 K/mm3 (0.00-0.031); Immature Granulocyte Percent A 0.8 % (0-0.5); Lymphocytes Absolute Auto 2.85 K/mm3 (0.9-3.2); Lymphocytes Percent Auto 38.4 % (18.3-44.2); Mean Corpuscular Hemoglobin 32.2 pg (26-34); Mean Corpuscular Volume 94.8 fl (80-100); Monocytes Absolute Auto 0.6 K/mm3 (0.1-0.6); Monocytes Percent Auto 8.5 % (2.6-8.5); Neutrophils Absolute Auto 3.8 K/mm3 (1.3-6.7); Neutrophils Percent Auto 50.5 % (45.5-73.1); Platelet Count Result 346 k/mm3 (150-375); Red Blood Count 4.84 M/mm3 (4.6-6.20); Red Cell Distribution Width 12.9 % (11.5-14.5); White Blood Count 7.4 K/mm3 (4.5-10.0)
[2023-09-27 11:30] LABS: Alanine Aminotransferase 24 U/L (6-50); Albumin Level 4.7 g/dL (3.5-5.1); Alkaline Phosphatase 63 U/L (38-126); Anion Gap 10 mmol/L (8-16); Aspartate Amino Transferase 25 U/L (17-59); Bilirubin,Total 0.8 mg/dL (0.2-1.3); Blood Urea Nitrogen 15 mg/dL (9-20); Calcium 9.9 mg/dL (8.4-10.2); Carbon Dioxide 25 mmol/L (22-30); Chloride 102 mmol/L (98-107); Estimated CRCL calculation 94 ml/min; Estimated Glomerular Filt Rate > 60; Glucose 96 mg/dL (65-110); Lipase 96 U/L (23-300); Sodium 137 mmol/L (137-145)
[2023-09-27 11:36] LABS: INR 0.9; Prothrombin Time 12.4 Seconds (11.1-14.7)
[2023-09-27 11:37] LABS: Partial Thromboplastin Time 26.7 SECONDS (22.3-36.8)
[2023-09-27 11:41] LABS: Troponin I < 0.012 ng/mL (0.000-0.034)
--- NOTE | 2023-09-27 12:25 | ED.GENADULT ---
HPI - General Adult General Chief complaint: Chest Pain Stated complaint: cp/ sob/ covid + 09/1823 Time Seen by Provider: 09/27/23 11:06 History of Present Illness HPI narrative: 53-year-old male with prior history of pulmonary embolism secondary to COVID presents to the emergency department complaining of chest wall pain after a recent COVID infection. Patient reports approximately 2 weeks ago he tested positive for COVID. Patient states he does feel improved since initial COVID infection but today started having some anterior chest pain that is worsened with deep inspiration worse with coughing. Patient describes it as a sharp pain. The patient is currently not on any blood thinners. Patient denies any history of coronary disease. patient reports prior history of pulmonary embolism secondary to COVID. Related Data Allergies Allergy/AdvReac Type Severity Reaction Status Date / Time No Known Allergies Allergy Unknown Verified 09/27/23 09:57 Review of Systems Review of Systems: All systems reviewed & are unremarkable except as noted in HPI and below PMFSH Past Medical History Medical History Acquired cavovarus foot deformity Capsulitis of left shoulder Impingement syndrome of left shoulder Labral tear of long head of left biceps tendon Obesity (BMI 30.0-34.9) Pneumonia due to COVID-19 virus Pulmonary embolism Renal infarct Tendonitis of left rotator cuff Surgical History Surgical History Colonoscopy planned 2020 Family History Family History Father Hypertension Family history of Parkinson's disease Mother Cerebrovascular accident Other Family history of arthritis Social History Social History Social History: Caffeine-diet soda Smoking status: Never smoker Second hand tobacco smoke exposure: Yes Alcohol intake: current Alcohol use details: occasionally Substance use type: does not use Lack of Transportation: No Lack of Food: Never True Current Housing: I Have Housing Concerned About Future Housing: No Difficulty Paying Gas/Electric Bills: No Difficulty Paying for Meds: No Currently Unemployed: No Education: Bachelor's Degree Difficulty w/ Childcare or Family Care: No Living arrangements: with family Occupation/Education: occupation Gender identity (if verbalized by the patient): Male Exam Narrative: APPEARANCE: Well appearing, no pain, no distress, well-nourished. HEAD: normocephalic, atraumatic. EYES: PERRLA/EOMI, conjunctivae clear. NOSE: Normal no drainage EARS:TMS clear with good light reflex. THROAT: Pharynx clear, no exudate. NECK: Supple. No adenopathy, no masses. RESPIRATORY: Airway patent, respirations nonlabored. Clear to auscultation bilaterally, no rales, rhonchi, wheezing. CARDIOVASCULAR: Regular rate and rhythm without murmurs rubs or gallops. ABDOMINAL: Soft, nontender, nondistended, normal bowel sounds MUSCULOSKELETAL: Moves all extremities. Strength/ROM intact, No edema, No calf tenderness. NEURO: Alert. Cranial nerves II through XII intact. Good gait. Good coordination SKIN: Warm, dry. Normal Color PSYCHIATRIC: Normal affect/mood. Course Course Emergency Course: 53-year-old male present to the ED for evaluation of substernal chest pain. EKG shows normal sinus rhythm, chest x-ray showed no acute abnormality. CTA to evaluate for pulmonary embolism was ordered and this was negative. Patient had negative serial troponins. Low concern for ACS with the negative EKG and negative serial troponins. Patient's symptoms were secondary to a recent COVID infection. suspect pleurisy since the CT scan is negative for pulmonary embolism. Patient will be provided albuterol inhaler and Tessalon Perles for
[2023-09-27 14:00] LABS: Troponin I < 0.012 ng/mL (0.000-0.034)
== END 2023-09-27 14:30 | disposition home or self-care (01) ==
PROVIDERS: Emergency Provider Emergency Medicine; PCP Family Medicine
DX: R07.89 Other chest pain (principal); R09.1 Pleurisy; U07.1 COVID-19; E66.9 Obesity, unspecified; Z68.32 Body mass index [BMI] 32.0-32.9, adult; Z87.01 Personal history of pneumonia (recurrent); Z86.16 Personal history of COVID-19; I45.10 Unspecified right bundle-branch block
CPT/HCPCS: 36415; 71046; 71275; 80053; 83690; 84484; 85025; 85610; 85730; 93005; 99284; Q9967

== ENCOUNTER 2024-07-19 08:02 | Emergency (ER) | payer BC, SELFPAY ==
--- NOTE | 2024-07-19 08:05 | ED.GENADULT ---
HPI - General Adult General Chief complaint: Extremity Injury, Lower Stated complaint: Left leg muscle spasms Time Seen by Provider: 07/19/24 08:20 Source: patient, RN notes reviewed and old records reviewed Mode of arrival: ambulatory Limitations: no limitations History of Present Illness HPI narrative: 53-year-old male to Express Care for complaint lower posterior leg pain for 2 months that has become acutely worse over past 2 weeks. Patient states that he stretches and works out regularly and he does believe the pain is musculoskeletal. Patient endorses history of PE post COVID. Patient denies injury, numbness, swelling, redness, shortness of. Patient reports that he is leaving today on vacation and he wanted to ensure he did not have a thrombosis prior to leaving. Patient sitting comfortably in exam room in no acute distress. Respirations even and nonlabored. Related Data Allergies Allergy/AdvReac Type Severity Reaction Status Date / Time No Known Allergies Allergy Unknown Verified 07/19/24 08:19 Review of Systems Review of Systems: All systems reviewed & are unremarkable except as noted in HPI and below Constitutional: Constitutional: Reports no additional constitutional complaints Eyes: Eyes: Reports no additional eye complaints ENT: Reports system reviewed and no additional complaints, except as documented Cardiovascular: Cardiovascular: Reports no additional cardiovascular complaints, Denies chest pain and Denies dyspnea Respiratory: Respiratory: Reports no additional respiratory complaints, Denies cough and Denies dyspnea Musculoskeletal: Musculoskeletal: Reports as per HPI and Reports other ( Left posterior lower leg pain) Neurologic: Reports system reviewed and no additional complaints, except as documented Psychiatric: Psychiatric: Reports no additional psychiatric complaints [facility] Past Medical History Medical History Acquired cavovarus foot deformity Capsulitis of left shoulder Impingement syndrome of left shoulder Labral tear of long head of left biceps tendon Obesity (BMI 30.0-34.9) Pneumonia due to COVID-19 virus Pulmonary embolism Renal infarct Tendonitis of left rotator cuff Surgical History Surgical History Colonoscopy planned 2020 Family History Family History Father Hypertension Family history of Parkinson's disease Mother Cerebrovascular accident Other Family history of arthritis Social History Social History Social History: Caffeine-diet soda Smoking status: Never smoker Second hand tobacco smoke exposure: Yes Alcohol intake: current Alcohol use details: occasionally Substance use type: does not use Lack of Transportation: No Lack of Food: Never True Current Housing: I Have Housing Concerned About Future Housing: No Difficulty Paying Gas/Electric Bills: No Difficulty Paying for Meds: No Currently Unemployed: No Education: Bachelor's Degree Difficulty w/ Childcare or Family Care: No Living arrangements: with family Occupation/Education: occupation Gender identity (if verbalized by the patient): Male Comments At the time of my signature, I reviewed and agree with the nursing past medical, surgical, social, and family history. There is no relevant family history pertinent to the patient complaint. Exam Const: General: cooperative, healthy appearing, comfortable, no acute distress, alert and well nourished Nutritional Appearance: well nourished Orientation/consciousness: patient oriented x3 Limitations: no limitations HENMT: Head: normal to inspection Ears: external ears normal Face/Nose/Sinus: Normal external nose present, Normal nares present, normal facial exam, No erythem
[2024-07-19 08:07] VITALS: BP 140/92; PULSE 80; RESP 16; TEMP 36.6; O2SAT 97
[2024-07-19 08:15] VITALS: BP 131/91
== END 2024-07-19 08:28 | disposition short-term general hospital (02) ==
LOC: EXPBETH 08:05
PROVIDERS: Emergency Provider Nurse Practitioner Family; PCP Family Medicine
DX: M79.662 Pain in left lower leg (principal); E66.9 Obesity, unspecified; Z68.32 Body mass index [BMI] 32.0-32.9, adult; Z86.711 Personal history of pulmonary embolism
CPT/HCPCS: 99212; G0463

== ENCOUNTER 2024-07-19 08:57 | Emergency (ER) | payer BC, SELFPAY ==
--- NOTE | ~2024-07-19 | US_ITS ---
EXAMINATION: US venous doppler [facility] DATE: 07/19/2024 10:09 INDICATION: Left calf pain. TECHNIQUE: Grayscale ultrasound images without and with compression and Doppler ultrasound images of the left lower extremity veins were obtained. COMPARISON: None. FINDINGS: The visualized portions of left common femoral vein, profunda (deep) femoral vein, femoral vein, popl iteal vein, peroneal veins, posterior tibial veins, and greater saphenous vein outflow are patent. IMPRESSION: 1. No deep venous thrombosis. Reviewed, dictated and finalized at location A.
[2024-07-19 09:00] VITALS: BP 150/89; PULSE 78; RESP 16; TEMP 36.6; O2SAT 100
--- NOTE | 2024-07-19 10:43 | ED.LOWEXIN ---
HPI - Extremity Injury (Lower) General Chief Complaint: Extremity Injury, Lower Stated Complaint: left calf pain sent by urgent care Time Seen by Provider: 07/19/24 09:07 History of Present Illness HPI Narrative: Patient is a 53-year-old male who presents ER with left-sided calf pain. History of PE in the past. Not currently on anticoagulation. Has had discomfort in left calf over last week. No leg swelling. No chest pain or shortness of breath. Sent by urgent care to rule out DVT. Related Data Allergies Allergy/AdvReac Type Severity Reaction Status Date / Time No Known Allergies Allergy Unknown Verified 07/19/24 08:19 Review of Systems Constitutional: Constitutional: Reports no additional constitutional complaints Cardiovascular: Cardiovascular: Reports no additional cardiovascular complaints Respiratory: Respiratory: Reports no additional respiratory complaints Musculoskeletal: Musculoskeletal: Denies back pain, Denies arthralgias and Denies joint swelling Comments: Left calf pain PMFSH Past Medical History Medical History Acquired cavovarus foot deformity Capsulitis of left shoulder Impingement syndrome of left shoulder Labral tear of long head of left biceps tendon Obesity (BMI 30.0-34.9) Pneumonia due to COVID-19 virus Pulmonary embolism Renal infarct Tendonitis of left rotator cuff Surgical History Surgical History Colonoscopy planned 2020 Family History Family History Father Hypertension Family history of Parkinson's disease Mother Cerebrovascular accident Other Family history of arthritis Social History Social History Social History: Caffeine-diet soda Smoking status: Never smoker Second hand tobacco smoke exposure: Yes Alcohol intake: current Alcohol use details: occasionally Substance use type: does not use Lack of Transportation: No Lack of Food: Never True Current Housing: I Have Housing Concerned About Future Housing: No Difficulty Paying Gas/Electric Bills: No Difficulty Paying for Meds: No Currently Unemployed: No Education: Bachelor's Degree Difficulty w/ Childcare or Family Care: No Living arrangements: with family Occupation/Education: occupation Gender identity (if verbalized by the patient): Male Exam Narrative: GENERAL: Well-appearing, well-nourished, and in no acute distress. HEAD: Normocephalic, atraumatic. ENT: Mucous membranes moist. CHEST: Clear to auscultation. No respiratory distress. HEART: Regular rate and rhythm. Normal peripheral pulses. EXTREMITIES: Normal range of motion. No edema. NEURO: Alert and oriented x3. PSYCH: Normal mood and affect. Course Course Emergency Course: No DVT. Discussed massage, anti-inflammatories, and discharged. Vital Signs Vital signs: Vital Signs Temperature 97.8 F 07/19/24 09:00 Pulse Rate 78 07/19/24 09:00 Respiratory Rate 16 07/19/24 09:00 Blood Pressure 150/89 H 07/19/24 09:00 Pulse Oximetry 100 07/19/24 09:00 Oxygen Delivery Room Air 07/19/24 09:00 Temperature 97.8 F 07/19/24 09:00 Pulse Rate 78 07/19/24 09:00 Respiratory Rate 16 07/19/24 09:00 Blood Pressure 150/89 H 07/19/24 09:00 Pulse Oximetry 100 07/19/24 09:00 Oxygen Delivery Room Air 07/19/24 09:00 MDM - Extremity Injury (Lower) Imaging Data Radiologist's impression: ITS Impressions Venous Doppler Study 07/19/24 10:20 IMPRESSION: 1. No deep venous thrombosis. Discharge Plan Discharge Clinical Impression: Pain of left calf Patient Disposition: Home, Self-Care Condition: Stable Instructions: Leg Cramps (ED) Additional Instructions: There is no DVT in your leg.
== END 2024-07-19 10:49 | disposition home or self-care (01) ==
PROVIDERS: Emergency Provider Emergency Medicine; PCP Family Medicine
DX: M79.662 Pain in left lower leg (principal); E66.9 Obesity, unspecified; Z68.32 Body mass index [BMI] 32.0-32.9, adult; Z86.711 Personal history of pulmonary embolism
CPT/HCPCS: 93971; 99284

== ENCOUNTER 2024-09-25 13:46 | Outpatient (CLI) | payer BC, SELFPAY ==
--- NOTE | ~2024-09-25 | XR_ITS ---
EXAMINATION: XR lg joint inject/asp w image DATE: 09/25/2024 14:30 INDICATION: Left hip arthritis with left hip pain TECHNIQUE: A time-out was performed to verify the patient's name, date of , and procedure to b e performed. The procedure including the risks, benefits, and alternatives was discussed with the pat ient. Risks discussed included bleeding and infection. The patient understood the risks and agreed to proceed. The skin overlying the left hip joint was prepped and draped in usual sterile fashion. An esthetic was administered with 1% lidocaine subcutaneously. A 22 G needle was advanced under fluoros copic guidance into the joint. Injection of 1 mL of Omnipaque 240 confirmed intra-articular position of the needle. Subsequently, injectate consisting of 3 mL of a 2:1 mixture of 0.5% bupivacaine: 80 mg/mL Depo-Medrol for a total dosage of 80 mg Depo-Medrol was instilled. Washout of contrast was seen confirming intra-articular administration. The needle was removed and the entry site was cleaned and dressed. There were no immediate complications. Fluoroscopy exposure time was 0.1 minutes. The tota l number of images was 2. FINDINGS: Real-time fluoroscopy demonstrates the needle in the left hip joint. Patient's pain prior t o procedure:1/10. Patient's pain following the procedure: 0/10. IMPRESSION: 1. Successful left hip joint injection of local anesthetic and steroid with decrease in the patient's presenting pain. Reviewed, dictated and finalized at location A. ECTOR PRECISION IMPRESSION: 1. Successful left hip joint injection of local anesthetic and steroid with dec rease in the patient's presenting pain.
== END 2024-09-25 13:47 | disposition home or self-care (01) ==
PROVIDERS: PCP Family Medicine; Visit Provider Nurse Practitioner Family
DX: M16.12 Unilateral primary osteoarthritis, left hip (principal)
CPT/HCPCS: 20610; 77002; J1010; Q9966

== ENCOUNTER 2024-11-20 14:07 | Outpatient (CLI) | payer BC, SELFPAY ==
--- NOTE | ~2024-11-20 | MR_ITS ---
EXAMINATION: MR brain IAC wo con DATE: 11/20/2024 14:54 INDICATION: Vertigo. Meniere's disease. TECHNIQUE: Magnetic resonance imaging (MRI) of the brain, brainstem, and internal auditory canals was performed without intravenous contrast. COMPARISON: None. FINDINGS: There is no intracranial hemorrhage, acute infarction, or abnormal intracranial mass lesion . The ventricles are normal in size. There is mucosal thickening in the paranasal sinuses. The chief internal auditor al auditory canals, inner ears, and tympanic cavities are normal. There is a trace left mastoid effus ion. The orbits are normal. IMPRESSION: 1. Normal brain. Reviewed, dictated and finalized at location B. IT COUNSELOR IMPRESSION: 1. Normal brain.
== END 2024-11-20 14:08 | disposition home or self-care (01) ==
PROVIDERS: PCP Surgery; Visit Provider Family Medicine
DX: S04.60 Injury of acoustic nerve, unspecified side (principal); H81.09 Meniere's disease, unspecified ear; X58.XXXA Exposure to other specified factors, initial encounter
CPT/HCPCS: 70551

== ENCOUNTER 2025-08-22 07:59 | Outpatient (CLI) | payer BC, SELFPAY ==
--- OUTSIDE RECORDS SUMMARY | 2025-08-22 08:04 | XMS_ITS | Clinical Summary ---
Author Organization [facility] Address [address] [place] [id number] Care Team Providers Care Custodial Laborer Name Role Phone Unavailable Primary Care Provider Unavailabl e Social History Tobacco Use Types Packs/Day Years Used Date Smoking Tobacco: Never Assessed Sex and Gender Information Value Date Recorded Sex Assigned at Not on file Legal Sex Male 7:08 PM CDT Gender Identity Not on file Sexual Orientation Not on file Plan of Treatment Health Maintenance Due Date Last Done Comments Colorectal Cancer Screening Colonoscopy (10 Years) 1968 Annual Physical 1971 Hepatitis C 1986 DTaP, Tdap and Td Vaccines ( 1 - Tdap) 1987 Hepatitis B Vaccines (1 of 3 - 19+ 3-dose series) 1987 Pneumococcal Vaccine: 50+ Ye ars (1 of 1 - PCV) 2018 Zoster Vaccines (1 of 2) 2018 COVID-19 Vaccine (2023-2 5 season) 2025 Influenza Adult (#1) 2025 Hepatitis A Vaccines Aged Out No long er eligible based on patient's age to complete this topic Meningococcal B Vaccine Aged Out No l onger eligible based on patient's age to complete this topic Meningococcal Vaccine Aged Out No anthony heydi eligible based on patient's age to complete this topic RSV Immunizations Under 20 Months Aged Out No longer eligible based on patient's age to complete this topic
--- OUTSIDE RECORDS SUMMARY | 2025-08-22 08:04 | XMS_ITS | Clinical Summary ---
Author Organization [facility] Address [address] [place] [id number] Phone Care Team Providers Care Static Balancer Name Role Phone Kannan Salgado MD Primary Care Provider [phone] Allergies No known active allergies Medications lisinopril-hydr oCHLOROthiazide (PRINZIDE, ZESTORETIC) 10-12.5 MG Tablet every morning. 07/27/2019 Active fluticasone (Flonase) 50 MCG/ACT Suspension 1-2 Sprays by Nasal route every morning. Use in each nostril as directed. Active Psyllium (METAMUCIL PO) Take by mouth as needed. Active Polyethylene Glycol 3350 (MIRALAX PO) Take by mouth as needed. Active VITAMIN D PO Take by mouth every morning. Active Ascorbic Acid (VITAMIN C PO) Take by mouth every morning. Active Probiotic Product (PROBIOTIC DAILY PO) Take by mouth every morning. Active Active Problems Problem Noted Date Diagnosed Date Chronic constipation 11/27/2020 Family hx of colon cancer 11/27/2020 Immunizations Immunization Administration Dates Next Due Influenza Vaccine, Quadrivalent, PF 08/09/2020 Influenza, Recombinant, Quadrivalent,injectable, Pf 08/14/2019 Zoster Vaccine Recombinant 07/31/2020 Family History Medical History Relation Name Comments Parkinsonism Father Diabetes Maternal Grandfather Stroke Mother Cancer Paternal Grandfather Colon Relation Name Status Comments Father Maternal Grandfather Mother Paternal Grandfather Social History Tobacco Use Types Packs/Day Years Used Date Smoking Tobacco: Never Smokeless Tobacco: Never Tobacco Cessation:Counseling Given: No Alcohol Use Standard Drinks/Week Comments Yes 0 (1 standard drink = 0.6 oz pur e alcohol) occassional Sexually Active Control Partners Comments Not Currently Sex and Gender Information Value Date Recorded Sex Assigned at Not on file Legal Sex Male 1:51 PM 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 Gender Identity Not on file Sexual Orientation Not on file Last Filed Vital Signs Vital Sign Reading Time Taken Comments Blood Pressure 123/87 12/31/2020 10:24 AM 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 Pulse 73 12/31/2020 10:24 AM 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 Temperature 36 C (96.8 F) 12/31/2020 10:24 AM 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 Respiratory Rate 16 12/31/2020 10:24 AM 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 Oxygen Saturation 99% 12/31/2020 10:24 AM 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 Inhaled Oxygen Concentration - - Weight 102.5 kg (226 lb) 12/09/2020 1:00 PM 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 Height 182.9 cm (6') 12/09/2020 1:00 PM 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 Body Mass Index 30.65 12/09/2020 1:00 PM 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 Plan of Treatment Health Maintenance Due Date Last Done Comments Hepatitis C Virus (HCV) Screening 1968 TdaP Immunization 1968 Hepatitis B Immunization (1 of 3 - 19+ 3-dose series) 1987 Cologuard 2013 Immunochemical Fecal Occult Blood 2013 Pneumococcal Immunization (5 0+ years) (1 of 1 - PCV) 2018 Zoster Immunization (2 of 2) 09/25/2020 07/31/2020 Influenza Immunization (#1) 2025 10/0 07/2020, 08/14/2019 SARS-COV-2 Immunization (3 - 2024- season) 2025 02/03/2021, 01/13/2021 Colonoscopy 12/31/2025 12/31/2020 Colorectal Cancer Screening 12/31/2025 Respiratory Syncytial Virus (RSV) Immunization (Adult) (1 - 1-dose 75+ series) 2043 Human Papillomavirus (HPV) Immunization Aged Out No longer eligible b ased on patient's age to complete this topic Meningococcal Immunization (ACWY) Aged Out No longer eligible b ased on patient's age to complete this topic Rotavirus Immunization Aged Out No lo nger eligible based on patient's age to complete this topic Insurance [facility] Care Teams Static Balancer Relationship Specialty Start Date End Date Kannan Salgado MD [address] [place] [id number] PCP - General Family Medicine 11/13/20
--- OUTSIDE RECORDS SUMMARY | 2025-08-22 08:04 | XMS_ITS | Clinical Summary ---
Author Organization [address] Address [address] [place] [address] Care Team Providers Care Barrel Rifler Button Name Role Phone Kannan Salgado MD Primary Care Provider [phone] [phone] Allergies No known active allergies Medications lisinopril-hydroCHL OROthiazide (ZESTORETIC) 10-12.5 mg per tablet TK 1 T PO QD 2 07/27/20 19 Active methylPREDNISolone (Medrol, Miguel Angel,) 4 mg DosepackIndications :Acute nasopharyngitis follow package directions 1 packet 04/15/20 22 Active Active Problems Problem Noted Date Diagnosed Date Constipation 11/05/2020 Surgical History Surgery Date Site/Laterality Comments LEG SURGERY 11/01/1971 - 10/31/1972 Left Compound fracture KNEE SURGERY 11/01/1984 - 10/31/1985 Left 1992 was the second surgery OTHER SURGICAL HISTORY 11/01/1999 - 10/31/2000 VESTIBULAR SURGERY TO HELP WITH MENIERES DISEASE Medical History Medical History Date Comments HTN (hypertension) Meniere disease Family History Medical History Relation Name Comments No Known Problems Father No Known Problems Mother Relation Name Status Comments Father Mother Alive Social History Tobacco Use Types Packs/Day Years Used Date Smoking Tobacco: Never Smokeless Tobacco: Never Tobacco Cessation:Counseling Given: Yes Alcohol Use Standard Drinks/Week Comments Yes 0 (1 standard drink = 0.6 oz pur e alcohol) ONCE OR TWICE A MONTH Personal Safety Answer Date Recorded Getting School Help Needed Not on file 01/15 Sex and Gender Information Value Date Recorded Sex Assigned at Not on file Legal Sex Male 8:46 AM CDT Gender Identity Not on file Sexual Orientation Not on file Obstetrics History Last Filed Vital Signs Vital Sign Reading Time Taken Comments Blood Pressure 112/82 04/15/2022 10:33 AM CDT Pulse 71 04/15/2022 10:33 AM CDT Temperature 36.2 C (97.1 F) 04/15/2022 10:33 AM CDT Respiratory Rate 16 04/15/2022 10:3 3 AM CDT Oxygen Saturation 96% 04/15/2022 10: 33 AM CDT Inhaled Oxygen Concentration - - Weight 108.7 kg (239 lb 9.6 oz) 022 10:33 AM CDT Height 182.9 cm (6') 04/15/2022 10:33 AM CDT Body Mass Index 32.5 04/15/2022 10:33 AM CDT Plan of Treatment Not on file Insurance [email or web address] MD Care Teams Barrel Rifler Button Relationship Specialty Start Date End Date Kannan Salgado MD PCP - General 04/25/21
== END 2025-08-22 08:00 | disposition home or self-care (01) ==
PROVIDERS: PCP Family Medicine; Visit Provider Otolaryngology
DX: H90.41 Sensorineural hearing loss, unilateral, right ear, with unrestricted hearing on the contralateral side (principal)
CPT/HCPCS: 92557; 92567